=== PATIENT | male | born 1990 | race Caucasian/White ===

== ENCOUNTER 2017-08-25 21:14 | Emergency (ER) | payer OTHER ==
[2017-08-25] MEDS ORDERED: TDAP ADULT 0.5 ML INJ (BOOSTRIX) IM ONE (22:12)
[2017-08-25] MEDS ORDERED: OXYCODONE/APAP 5/325 TAB PO ONE (22:12)
--- NOTE | 2017-08-25 22:13 | EDPHY ---
H & P Stated Complaint: pt says cut L 1st toe with a machete Time Seen by Provider: 08/25/17 22:12 HPI/ROS: HPI: This is a 26-year-old male who presents with Chief Complaint: Toe laceration Location: Left foot between 1st and 2nd toes Quality: Laceration Duration: 2 3 hours prior to arrival Signs and Symptoms: + mild bleeding, no radiation, no numbness, no weakness, no tingling, no incontinence, + mild decreased range of motion Timing: Sudden Severity: Moderate Context: Patient complains of laceration between the 1st and 2nd digit of his left foot in the web space. He reports that he was walking in the dark, slipped and his shoe came off, and stepped on a machete. He was [place] the [place] camping for the last 2 days. Him and [place] the mountain and [place] to the emergency room. Unsure of last tetanus shot. He reports pain 6/10; nonradiating; sharp; worse with movement. He is able to wiggle his toe and feel me touch the tip of his great toe. Modifying Factors: Direct pressure Comment: ROS: Constitutional: No fever, no chills, no weight loss Eyes: No blurred vision Respiratory: No shortness of breath, no cough Cardiovascular: No chest pain Gastrointestinal: No nausea, no vomiting no diarrhea Genitourinary: No dysuria Extremities: No myalgias Neurologic: No weakness, no numbness Skin: No rashes Hematologic: No bruising, no bleeding MEDICAL/SURGICAL/SOCIAL HISTORY: Medical history: tbi, loss of sensation L hand, depression, adhd Surgical history: Sutures prior Social history: Was in the [place]. CONSTITUTIONAL: Adult white male joking and laughing with his friend at bedside , awake and alert, no obvious distress HEENT: Atraumatic and normocephalic, PERRL, EOMI. Tympanic membranes clear. Oropharynx clear, no exudate and moist pink mucosa. Airway patent. No lymphadenopathy. No meningismus. Cardiovascular: Normal S1/S2, regular rate, regular rhythm, without murmur rub or gallop. PULMONARY/CHEST: Symmetrical and nontender. Clear to auscultation bilaterally. Good air movement. No accessory muscle usage. ABDOMEN: Soft, nondistended, nontender, no rebound, no guarding, no peritoneal signs, no masses or organomegaly. No CVAT. EXTREMITIES: 2/2 pulses, 3 cm horizontal laceration in the webspace between the left 1st digit and 2nd digit. Light touch sensation to 1st digit/2nd digit intact but mildly decreased. DIP/MTP flexion extension intact but decreased in movement. no deformities, no clubbing, no cyanosis or edema. NEUROLOGICAL: no focal neuro deficits. GCS 15. SKIN: Warm and dry, no erythema. no rash. Good capillary refill. Source: Patient Exam Limitations: No limitations - Personal History Current Tetanus Diphtheria and Acellular Pertussis (TDAP): Unsure - Medical/Surgical History Hx Asthma: No Hx Chronic Respiratory Disease: No Hx Diabetes: No Hx Cardiac Disease: No Hx Renal Disease: No Hx Cirrhosis: No Hx Alcoholism: No Hx HIV/AIDS: No Hx Splenectomy or Spleen Trauma: No Other PMH: tbi, loss of sensation L hand, depression, adhd - Social History Smoking Status: Current every day smoker Constitutional: Initial Vital Signs Temperature (C) 36.5 C 08/25/17 21:17 Heart Rate 117 H 08/25/17 21:17 Respiratory Rate 18 08/25/17 21:17 Blood Pressure 159/104 H 08/25/17 21:17 O2 Sat (%) 98 08/25/17 21:17 O2 Delivery Mode Room Air Allergies/Adverse Reactions: No Known Allergies Allergy (Unverified 08/25/17 21:21) Home Medications: Medication Instructions Recorded Concerta 08/25/17 IBUPROFEN 08/25/17 Prozac 10 MG (*) 08/25/17 Medical Decision Making - Diagnostics Imaging Results: Imaging Impressions Foot X-Ray 08/25/17 22:12 Impression: Normal. Procedures: Procedure: Laceration repair. Verbal consent was obtained from the patient. The left foot web space deep 3 cm vertical laceration was anesthetized in the usual fashion using a digital block. The wound was copiously irrigated, draped and explored to its base with a gloved finger. Organic material was removed from the laceration bed. There were no deep structures involved. Possible tendon injury and nerve were identified. The wound was repaired with #13, 5-0 Prolene in simple interrupted pattern. Good hemostasis was achieved patient tolerated procedure well. Xeroform, Kerlix applied. Toes were . Placed in walking boot. The procedure was performed by myself. ED Course/Re-evaluation: Tetanus booster given Foot x-ray my read via PACs shows no fracture; dislocation; foreign body Advised possible Concern for nerve and tendon injury. Patient was given the option to have Orthopedic consult this evening while in the ER. He politely declined as he wants to return to the camp site. He is well aware of the risks of nerve and tendon injury as well as decreased range of motion. Laceration repair #13 absorbable sutures; placed in walking boot; partial weightbearing status of left lower extremity. Follow up with Orthopedics in 2-3 days. No signs of neurovascular compromise/tenting of skin/compartment syndrome/ extremities and joints examined above and below area of concern and are neurovascularly intact. Differential Diagnosis: Differential includes fracture, tendon injury, nerve injury, dislocation. - Data Points Medications Given: Discontinued Medications Diphtheria/Tetanus/Acell Pertussis (Boostrix) 0.5 ml IM .ONCE ONE Stop: 08/25/17 22:13 Last Admin: 08/25/17 23:34 Dose: 0.5 ml Oxycodone/Acetaminophen (Percocet 5/325) 2 tab PO EDNOW ONE Stop: 08/25/17 22:13 Last Admin: 08/25/17 22:15 Dose: 2 tab Tramadol HCl (Ultram) 50 mg PO EDNOW ONE Stop: 08/26/17 00:37 Last Admin: 08/26/17 00:41 Dose: 50 mg Departure - Departure Disposition: Home, Routine, Self-Care Clinical Impression: Foot laceration involving tendon Qualifiers: Encounter type: initial encounter Laterality: left Qualified Code(s): S91.312A - Laceration without foreign body, left foot, initial encounter Condition: Good Instructions: Laceration (ED), Tendon Laceration (ED) Additional Instructions: Keep the dressing in place for 48 hours. After 48 hours, you may remove the dressing; wash the site daily with mild soap and water; then pat dry. Please wear the walking boot until seen by Orthopedics and advised otherwise. Take ibuprofen 600-800 mg every 6-8 hours with food as needed for pain and inflammation. Apply ice for 30 minutes at a time; 2-3 times per day for the next 1-2 days. Follow up with Orthopedics in 3-5 days at which time they will evaluate and recommend with you if conservative management versus surgery is indicated. There is a possibility that you have tendon and nerve injury at this time. Sutures need to be removed in 12-14 days. You may return to the emergency room to have this procedure performed. The x-rays obtained in the emergency department today demonstrate no evidence of an obvious fracture. Sometimes fractures are not obvious on the initial set of x-rays performed in the ED. For this reason, you should have repeat x-rays performed in 7-10 days if you are having any pain exclude the possibility of an occult fracture. Referrals: Travis Montana MD [Medical Doctor] - As per Instructions
[2017-08-26] MEDS ORDERED: traMADol 50 MG TAB PO PRN (00:29)
[2017-08-26] MEDS ORDERED: traMADol 50 MG TAB PO ONE (00:36)
[2017-08-26 00:51] VITALS: BP 146/97; PULSE 103; RESP 20; TEMP 97.9; O2SAT 97
== END 2017-08-26 00:51 | disposition home or self-care (01) ==
PROC: 0HQNXZZ Repair Left Foot Skin, External Approach (ICD-10-PCS; principal; 2017-08-25)
DX: S91.312A Laceration without foreign body, left foot, initial encounter (principal); Z23 Encounter for immunization; W26.8XXA Contact with other sharp object(s), not elsewhere classified, initial encounter; Y99.8 Other external cause status; Y93.01 Activity, walking, marching and hiking; F17.200 Nicotine dependence, unspecified, uncomplicated
CPT/HCPCS: L4386